=== PATIENT | female | born 1965 | race Caucasian/White ===

== ENCOUNTER → 2022-01-08 | Outpatient (CLI) | payer BC | LOC: US 12:27 | PROVIDERS: ATTEND Urology | DX: N39.0 Urinary tract infection, site not specified (principal); R31.21 Asymptomatic microscopic hematuria; D41.02 Neoplasm of uncertain behavior of left kidney | CPT/HCPCS: 76770 ==

== ENCOUNTER → 2023-02-02 | Outpatient (CLI) | payer BC, OTHER | LOC: US 10:11 | PROVIDERS: ATTEND Urology | DX: R31.21 Asymptomatic microscopic hematuria (principal) | CPT/HCPCS: 74018; 76770 ==